=== PATIENT | female | born 2000 | race Caucasian/White ===

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

== ENCOUNTER 2019-08-12 13:25 | Emergency (ER) | payer MEDICAID ==
[~2019-08-12] VITALS: Ht 160 cm; Wt 62.6 kg
[2019-08-12 13:36] VITALS: Ht 160 cm; Wt 62.6 kg
[2019-08-12 15:04] LABS: UA SPECIFIC GRAVITY 1.025 (1.005-1.035); microscopic required? YES; urine erythrocyte NEGATIVE (NEGATIVE)
[2019-08-12 15:18] LABS: BASOPHIL % 0.4 % (0-2); PLATELET COUNT 248 x10^3mcL (130-400); RED CELL DISTRIBUTION WIDTH 12.9 % (11.5-14.5)
[2019-08-12 16:17] VITALS: BP 130/87
== END 2019-08-12 16:17 | disposition home or self-care (01) ==
LOC: ED 13:25
PROVIDERS: Emergency Medicine
DX: O23.41 Unspecified infection of urinary tract in pregnancy, first trimester (principal); Z3A.01 Less than 8 weeks gestation of pregnancy
CPT/HCPCS: 36415; Q0092

== ENCOUNTER 2020-01-05 17:12 | Emergency (ER) | payer OTHER ==
[~2020-01-05] VITALS: Ht 160 cm; Wt 72.1 kg
[2020-01-05 19:27] VITALS: BP 129/74
== END 2020-01-05 19:27 | disposition short-term general hospital (02) ==
LOC: ED 17:12
DX: O26.892 Other specified pregnancy related conditions, second trimester (principal); R10.2 Pelvic and perineal pain; M54.9 Dorsalgia, unspecified; R10.814 Left lower quadrant abdominal tenderness; Z3A.24 24 weeks gestation of pregnancy

== ENCOUNTER 2020-06-01 14:52 | Emergency (ER) | payer OTHER ==
[~2020-06-01] VITALS: Ht 160 cm; Wt 74.4 kg
[2020-06-01 15:02] VITALS: Ht 160 cm; Wt 74.4 kg
[2020-06-01 16:40] VITALS: BP 120/77
[2020-06-01] MEDS ORDERED: IBU600 M2 PO (17:34)
[2020-06-01] MEDS ORDERED: REGLAN10 M1 PO (17:34)
== END 2020-06-01 17:45 | disposition home or self-care (01) ==
LOC: ED 14:52
DX: G43.909 Migraine, unspecified, not intractable, without status migrainosus (principal); G40.909 Epilepsy, unspecified, not intractable, without status epilepticus